=== PATIENT | male | born 1955 | race Caucasian/White ===

== ENCOUNTER → 2018-01-22 | Outpatient (CLI) | payer OTHER ==
--- NOTE | 2018-01-22 21:38 | MR ---
EXAMINATION TYPE: MR knee LT wo con DATE OF EXAM: 01/22/2018 COMPARISON: NONE HISTORY: Left knee pain per order, inner pain for 10 to 12 days after walking injury per patient. TECHNIQUE: Multiplanar, multisequence images of the knee is performed without IV contrast. FINDINGS: MEDIAL MENISCUS: Anterior horn is intact without tear. There is complex increased signal posterior ho rn medial meniscus with vertical component extending to superior articular surface seen best on coron al image 25 consistent with full-thickness meniscal tear. LATERAL MENISCUS: Anterior and posterior horns are intact without tear. CRUCIATE LIGAMENTS: The anterior and posterior cruciate ligaments are intact and unremarkable. COLLATERAL LIGAMENTS: The medial collateral ligament and lateral collateral ligament complex are inta ct. Mild fluid signal surrounds lateral collateral ligament complex. There is more prominent severe f luid signal surrounding the medial collateral ligament particularly deeper fibers with fluid signal e xtending posteriorly noted. EXTENSOR MECHANISM: Visualized quadriceps and patellar tendons are intact. EFFUSION: There is a large suprapatellar joint effusion with heterogeneous linear signal suggesting s ynovitis. POPLITEAL CYST: No popliteal/osborne cyst. TRICOMPARTMENT SPACES: There is mild tricompartment joint space loss and spurring. CARTILAGE: Tricompartment articular cartilage is maintained. BONE MARROW SIGNAL: There is heterogeneous cystic change distal medial femoral condyle of uncertain e tiology presumed benign without obvious radiographic correlate. OTHER: No additional significant abnormality is appreciated. IMPRESSION: 1. Complex full-thickness tear posterior horn medial meniscus. 2. Severe MCL sprain injury. 3. Mild LCL sprain injury. 4. Large suprapatellar joint effusion with evidence of synovitis. 5. Mild tricompartment degenerative changes slightly more prominent medial tibiofemoral compartment.
== END | disposition home or self-care (01) ==
LOC: RADMRIMAIN 19:48
PROVIDERS: ATTEND Orthopaedic Surgery
DX: S83.232A Complex tear of medial meniscus, current injury, left knee, initial encounter (principal); S83.412A Sprain of medial collateral ligament of left knee, initial encounter; S83.422A Sprain of lateral collateral ligament of left knee, initial encounter; R93.7 Abnormal findings on diagnostic imaging of other parts of musculoskeletal system

== ENCOUNTER → 2018-01-30 | Outpatient (CLI) | payer OTHER | LOC: LABPAT 09:55 | PROVIDERS: ATTEND Orthopaedic Surgery | DX: Z01.818 Encounter for other preprocedural examination (principal); M23.92 Unspecified internal derangement of left knee | CPT/HCPCS: 93005 ==

== ENCOUNTER 2018-02-01 08:14 | Day surgery (SDC) | payer OTHER ==
[2018-01-30 14:37] VITALS: BMI 26.6
--- NOTE | 2018-01-31 10:22 | HP ---
HISTORY AND PHYSICAL CHIEF COMPLAINT: Left knee pain. 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 He notes persistent medial pain, swelling, and giving way. He has tried medications in addition to an injection with only partial temporary relief. PAST MEDICAL HISTORY: Significant for hypothyroidism. PAST SURGICAL HISTORY: Negative. CURRENT MEDICATIONS: Ibuprofen and Synthroid. He denies drug allergies. FAMILY HISTORY: Significant for cancer. SOCIAL HISTORY: Negative for current tobacco or alcohol use. REVIEW OF SYSTEMS: Sixteen point review of systems otherwise reviewed and is noncontributory.. PHYSICAL EXAMINATION: On examination, the patient is approximately 5 foot 9, 178 pounds of mesomorphic habitus. HEENT exam is nonfocal. Neck is supple. He has painless passive motion of his left hip. Straight leg raise is negative. On examination of his left knee, he has a moderate effusion. He is tender about the medial joint line. Active motion -12 to 135 degrees of flexion. Collaterals are stable, Myriam's negative, Oswaldo's elicits medial pain. His distal neurovascular appears intact in the left lower extremity. MRI report left knee from 01/22/2018 shows a posterior medial meniscal tear along with a large effusion. IMPRESSION: 1. Internal derangement, left knee with symptomatic medial meniscal tear. 2. Left knee mild medial compartment osteoarthrosis. RECOMMENDATION: I talked to the patient at length regarding his condition and treatment options. At this point, he is having persistent pain and mechanical symptoms that limit him. After a thorough discussion of his options, he opts to proceed with surgery. We will plan to proceed with arthroscopic evaluation with probable partial medial meniscectomy. Risks and benefits were discussed at length in layman's terms. We will likely perform that as an outpatient procedure. MMODL / IJN: [id number] /
[~2018-02-01 08:14] MED LIST: DEXAMETHASONE SOD PHOSPHATE 10 MG/ML 1 ML VIAL IV ONE; LACTATED RINGERS 1,000 ML IV SCH; LIDOCAINE 1% 20 ML VIAL (10MG/ML) FOR IV START INTRADERMA PRN; MIDAZOLAM 2 MG/2 ML VIAL IV PRN; ONDANSETRON ODT 4 MG TAB PO ONE; SCOPOLAMINE 1.5MG/72HR PATCH TRANSDERM ONE; ceFAZolin IN SWFI 2 GM/20 ML SYRINGE IVP ONE; fentaNYL (PF) 50 MCG/ML 2 ML AMP IV PRN
[2018-02-01 08:48] VITALS: RESP 16
[2018-02-01] MEDS ORDERED: MIDAZOLAM 2 MG/2 ML VIAL ONE (10:45)
[2018-02-01] MEDS ORDERED: EPINEPHrine (PF) 1 ML in SODIUM CHLORIDE 0.9% IRRIGATIO 3,000 ML IRRIGATION ONE ×4 (10:45)
[2018-02-01] MEDS ORDERED: LIDOCAINE 1% INJ 10MG/ML (20 ML MDV) ONE (10:45)
[2018-02-01] MEDS ORDERED: fentaNYL (PF) 50 MCG/ML 2 ML AMP ONE (10:45)
[2018-02-01] MEDS ORDERED: MORPHINE SULFATE 10 MG/ML SYRINGE ONE (10:45)
[2018-02-01] MEDS ORDERED: PROPOFOL 10 MG/ML 20 ML VIAL IV ONE (10:45)
[2018-02-01] MEDS ORDERED: KETOROLAC 30 MG/ML 1 ML VIAL ONE (10:45)
--- NOTE | 2018-02-01 11:37 | P.OP ---
Date of Procedure: 02/01/18 Preoperative Diagnosis: Left knee internal derangement Postoperative Diagnosis: Left knee posterior medial meniscal tear/middle one third lateral meniscal tear Procedure(s) Performed: Left knee arthroscopic partial medial meniscectomy/partial lateral meniscectomy Anesthesia: KIM Surgeon: Cuauhtemoc Wall Estimated Blood Loss (ml): 10 Pathology: none sent Condition: stable Disposition: PACU Indications for Procedure: Patient is a 62-year-old male presents with progressive left knee pain and mechanical symptoms after a previous twisting injury despite conservative measures. A discussion of the risks and benefits of operative intervention versus continued conservative measures was made with the patient. He opted to proceed with surgery. Operative risks to include infection, neurovascular injury, development of blood clots, possible incomplete resolution symptoms, possible worsening symptoms and need for subsequent procedures was discussed. Informed consent was obtained. Operative Findings: As below Description of Procedure: The patient was brought to the operating room, and after induction of general anesthesia examined the left knee. Collaterals were stable, Myriam was negative, and posterior drawer was negative. The left lower extremity was prepped and draped in normal fashion. A superior lateral portals made through a 3 mm skin incision superior and lateral to the patella. This was used for outflow. A large effusion was encountered. A lateral portal was made through a 5 mm vertical skin incision lateral to the patellar tendon above the joint line. Diagnostic arthroscopy was performed. A medial portal was made through a similar incision medial to the patellar tendon above the joint line. On inspection of the medial compartment, he was noted have a oblique flap tear involving the posterior horn of the medial meniscus in the white-red junction. This was not amenable to repair. This was debrided back to stable base with straight baskets and a motorized shaver. The remaining medial meniscus was stable and intact. Grade 1/2 chondral changes were noted diffusely in the medial compartment. On inspection of the notch, the anterior cruciate ligament appeared be intact. On inspection of the lateral compartment, he was noted to have a radial tear involving the middle one third of the lateral meniscus in the white-and. This was debrided back to stable base with a motorized shaver and straight baskets. The edges were contoured. The remaining lateral meniscus was stable and intact. On inspection the patellofemoral articulation, there was mild chondral fibrillation however no loose chondral fragments. The gutters were clear debris. The knee was then thoroughly irrigated. The portals were closed with Steri-Strips. A sterile dressing was applied in addition to a compression stocking. The patient was awoken from general anesthesia and transferred to recovery room in good condition. Blood loss was estimated at 10 mL. No complications were incurred.
[2018-02-01 11:41] VITALS: TEMP 97.2
[2018-02-01] MEDS: MORPHINE SULFATE 2 MG/ML SYRINGE IV PRN ×4 (11:47→12:05)
[2018-02-01 12:58] VITALS: BP 156/90; PULSE 54
== END 2018-02-01 13:24 | disposition home or self-care (01) ==
LOC: OR 08:14
PROVIDERS: ATTEND Orthopaedic Surgery
DX: S83.242A Other tear of medial meniscus, current injury, left knee, initial encounter (principal); S83.282A Other tear of lateral meniscus, current injury, left knee, initial encounter; X50.1XXA Overexertion from prolonged static or awkward postures, initial encounter; M24.10 Other articular cartilage disorders, unspecified site; E03.9 Hypothyroidism, unspecified; Z79.890 Hormone replacement therapy; E78.5 Hyperlipidemia, unspecified; M17.12 Unilateral primary osteoarthritis, left knee; Z79.1 Long term (current) use of non-steroidal anti-inflammatories (NSAID)
CPT/HCPCS: 29880; J2250; J1100; J2270 ×2; J0171; J2001; J3010; J1885; J2704